=== PATIENT | male | born 1960 | race Hispanic/Latino ===

== ENCOUNTER → 2016-10-19 | Outpatient (CLI) | payer OTHER ==
--- NOTE | 2016-10-19 09:51 | REP ---
CT study of the chest without contrast: History: Superior segment right lower lobe nodular density for follow-up. Comparison is made with multiple prior CTs. The most recent of these is dated April 21, 2016. The most remote is from November 22, 2014. Findings: There has been no change in the fibronodular density in the superior segment of the right lower lobe in the interval since the November 22, [address] study. This is felt to be a benign area of fibrosis. There is a linear area of benign stable fibrosis elsewhere in the right lower lobe also unchanged. No other pulmonary nodule or mass lesion is seen. The lung borja are otherwise clear. There is no evidence of pleural or pericardial effusion. No hilar or mediastinal mass or adenopathy is seen. No adrenal lesion is observed. Visualized upper abdominal structures are otherwise unremarkable. No extrathoracic mass or adenopathy is seen. No bony abnormality is noted. Impression: No active disease. Stable fibronodular scarring right lower lobe superior segment. No change since November 22, 2014. Signed by Isaias Cole MD 10/19/2016 10:06 A
== END ==
LOC: M RAD 07:32
PROVIDERS: ATTEND Internal Medicine Pulmonary Disease
DX: R91.8 Other nonspecific abnormal finding of lung field (principal)

== ENCOUNTER → 2020-01-23 | Outpatient (CLI) | payer OTHER ==
--- NOTE | 2020-01-24 00:40 | REP ---
MRI LEFT FOOT: TECHNIQUE: Multiple sequences obtained in the axial, coronal, and sagittal planes. In the plantar soft tissues adjacent to the 2nd proximal phalanx, there is an oval nodule, which measures approximately 1.8 x 2.3 x 2.4 cm. It is predominantly high in signal on T2-weighted images and is somewhat hypointense on T1-weighted images. There are thick snider. There appear to be thin internal septations. I suspect this represents a complex cyst. No other mass is seen in the soft tissues. Diffuse edema is seen in the soft tissues. There are mild degenerative changes at the 1st metatarsophalangeal joint with mild subchondral marrow edema in the head of the 1st metatarsal. IMPRESSION: Oval nodule in the plantar soft tissues adjacent to the 2nd proximal phalanx, as discussed above with thick snider and thin internal septations. I suspect this represents a complex cyst. Electronically Signed by Manuel Light MD 01/24/2020 01:31 P
== END ==
LOC: M RAD 13:14
PROVIDERS: ATTEND Podiatrist Foot & Ankle Surgery
DX: D21.22 Benign neoplasm of connective and other soft tissue of left lower limb, including hip (principal)

== ENCOUNTER → 2020-01-29 | Outpatient (REF) | payer OTHER | LOC: M LAB REF 12:06 | PROVIDERS: ATTEND Podiatrist Foot & Ankle Surgery | DX: L72.0 Epidermal cyst (principal) ==

== ENCOUNTER 2020-06-20 10:58 | Day surgery (SDC) | payer OTHER ==
[~2020-06-20] VITALS: Ht 177.8 cm; Wt 122.4 kg
[~2020-06-20 10:58] MED LIST: ALLOPOW4; AMLO1TAB24; ATOR40TA75; ECOT81TA5 PO; LIDOCAINE 2% 100MG/5ML SDV (FOR ANES.) As Ordered ONE; LOSA100T50; NS 1,000 ML IV ONE; SILD100T; propofoL 200 MG/20 ML VIAL As Ordered ONE
[2020-06-20] MEDS ORDERED: propofoL 200 MG/20 ML VIAL As Ordered ONE (12:00)
--- NOTE | 2020-06-20 12:34 | ROOR ---
Patient Name: Partha Beach Procedure Date: 06/20/2020 11:46 AM Date of : 1960 Age: 59 Room: [facility] Gender: Male Note Status: Finalized Procedure: Colonoscopy Indications: Screening for colorectal malignant neoplasm Providers: Deuce Nair MD Referring MD: ISABELLA MASON MD Requesting Provider: Medicines: Monitored Anesthesia Care Complications: No immediate complications. Procedure: Pre-Anesthesia Assessment: - Prior to the procedure, a History and Physical was performed, and patient medications and allergies were reviewed. The patient is competent. The risks and benefits of the procedure and the sedation options and risks were discussed with the patient. All questions were answered and informed consent was obtained. Patient identification and proposed procedure were verified by the physician, the nurse and the anesthesiologist in the procedure room. Mental Status Examination: alert and oriented. Airway Examination: normal oropharyngeal airway and neck mobility. Respiratory Examination: clear to auscultation. CV Examination: normal. Prophylactic Antibiotics: The patient does not require prophylactic antibiotics. Prior Anticoagulants: The patient has taken no previous anticoagulant or antiplatelet agents. ASA Grade Assessment: II - A patient with mild systemic disease. After reviewing the risks and benefits, the patient was deemed in satisfactory condition to undergo the procedure. The anesthesia plan was to use monitored anesthesia care (MAC). Immediately prior to administration of medications, the patient was re-assessed for adequacy to receive sedatives. The heart rate, respiratory rate, oxygen saturations, blood pressure, adequacy of pulmonary ventilation, and response to care were monitored throughout the procedure. The physical status of the patient was re-assessed after the procedure. The Colonoscope was introduced through the anus and advanced to the cecum, identified by appendiceal orifice and ileocecal valve. The colonoscopy was performed without difficulty. The patient tolerated the procedure well. The quality of the bowel preparation was good. The ileocecal valve, appendiceal orifice, and rectum were photographed. Scope insertion time was 3 minutes. Scope withdrawal time was 9 minutes. The total duration of the procedure was 16 minutes. Findings: The perianal and digital rectal examinations were normal. Five sessile polyps were found in the transverse colon, ascending colon and cecum. The polyps were 4 to 6 mm in size. These polyps were removed with a hot snare. Resection and retrieval were complete. Verification of patient identification for the specimen was done by the physician and nurse using the patient's name, date and medical record number. Estimated blood loss was minimal. A 15 mm polyp was found in the descending colon. The polyp was sessile. The polyp was removed with a hot snare. Resection and retrieval were complete. Multiple small and large-mouthed diverticula were found in the sigmoid colon and ascending colon. There was no evidence of diverticular bleeding. Non-bleeding external and internal hemorrhoids were found during retroflexion. The hemorrhoids were medium-sized. Impression: - Five 4 to 6 mm polyps in the transverse colon, in the ascending colon and in the cecum, removed with a hot snare. Resected and retrieved. - One 15 mm polyp in the descending colon, removed with a hot snare. Resected and retrieved. - Moderate diverticulosis in the sigmoid colon and in the ascending colon. There was no evidence of diverticular bleeding. - Non-bleeding external and internal hemorrhoids. Recommendation: - Patient has a contact number available for emergencies. The signs and symptoms of potential delayed complications were discussed with the patient. Return to normal activities tomorrow. Written discharge instructions were provided to the patient. - High fiber diet. - Continue present medications. - Await pathology results. - Repeat colonoscopy in 3 years for surveillance based on pathology results. - Telephone GI clinic for pathology results in 2 weeks. - Return to primary care physician. Deuce Nair MD Deuce Nair MD 06/20/2020 12:33:47 PM Electronically signed by Deuce Nair MD Number of Addenda: 0 Note Initiated On: 06/20/2020 11:46 AM Estimated Blood Loss: Estimated blood loss was minimal.
[2020-06-20 12:45] VITALS: BP 141/18
== END 2020-06-20 12:53 | disposition home or self-care (01) ==
LOC: M OPP 10:58
PROVIDERS: ATTEND Internal Medicine Gastroenterology
DX: Z12.11 Encounter for screening for malignant neoplasm of colon (principal); K63.5 Polyp of colon; K57.30 Diverticulosis of large intestine without perforation or abscess without bleeding; K64.8 Other hemorrhoids; I10 Essential (primary) hypertension; Z79.899 Other long term (current) drug therapy

== ENCOUNTER → 2025-06-05 | Outpatient (CLI) | payer MEDICARE, OTHER ==
[~2025-06-05] MED LIST changes: -LIDOCAINE 2% 100MG/5ML SDV (FOR ANES.) As Ordered ONE; +LOSA100T46; -LOSA100T50; -NS 1,000 ML IV ONE; -propofoL 200 MG/20 ML VIAL As Ordered ONE
== END ==
LOC: M RAD 10:46
PROVIDERS: ATTEND Internal Medicine Nephrology
DX: N18.2 Chronic kidney disease, stage 2 (mild) (principal); R30.0 Dysuria